=== PATIENT | female | born 1955 | race Caucasian/White ===

== ENCOUNTER → 2018-10-29 11:13 | Outpatient (CLI) | payer OTHER, MEDICAID, SELFPAY | PROVIDERS: Visit Provider Physician Assistant | DX: N89.8 Other specified noninflammatory disorders of vagina (principal) | CPT/HCPCS: 87077; 87086; 87186; 87210 ==

== ENCOUNTER → 2018-12-23 11:00 | Outpatient (CLI) | payer OTHER, MEDICAID, SELFPAY ==
--- NOTE | 2018-12-23 11:03 | DI.MG.S_ITS ---
BILATERAL DIGITAL SCREENING MAMMOGRAM 3D/2D WITH CAD: 12/23/2018 CLINICAL: Routine screening. Baseline exam. No prior exams were available for comparison. The tissue of both breasts is heterogeneously dense. This may lower the sensitivity of mammography. Current study was also evaluated with a Computer Aided Detection (CAD) system. There are mole markers on both breasts. No significant masses, calcifications, or other findings are seen in either breast. IMPRESSION: NEGATIVE There is no mammographic evidence of malignancy. A 1 year screening mammogram is recommended. This exam was interpreted at Station ID: [id number]. NOTE: For mammograms, a report in lay terms will be sent to the patient. Approximately 15% of breast malignancies will not be visualized mammographically. In the management of a palpable breast mass, a negative mammogram must not discourage biopsy of a clinically suspicious lesion. Electronically Signed By: Zia jeong/sree:12/24/2018 06:42:51 letter sent: Normal Exam ACR BI-RADS Category 1: Negative [id number]
== END ==
PROVIDERS: PCP Physician Assistant; Visit Provider Physician Assistant
DX: Z12.31 Encounter for screening mammogram for malignant neoplasm of breast (principal)
CPT/HCPCS: 77063; 77067

== ENCOUNTER 2019-03-22 13:07 | Emergency (ER) | payer OTHER, MEDICAID, SELFPAY ==
[2019-03-22 13:19] VITALS: BP 124/58; PULSE 85; RESP 18; TEMP 36.6; O2SAT 99
[2019-03-22 14:10] LABS: Add Manual Diff / Slide Review NO; Basophils Absolute Auto 100 /uL (0-100); Basophils Percent Auto 0.4 % (0-2); Eosinophils Absolute Auto 0 /uL (0-450); Eosinophils Percent Auto 0.1 % (2-4); Hematocrit 38.1 % (36-46); Hemoglobin 12.8 g/dL (12.0-16.0); Lymphocytes Absolute Auto 1000 /uL (1100-4500); Lymphocytes Percent Auto 5.3 % (25-40); Mean Corpuscular HGB Conc 33.7 % (30-36); Monocytes Absolute Auto 900 /uL (0-900); Neutrophils Absolute Auto 16400 /uL (1500-7000); Neutrophils Percent Auto 89.2 % (50-75); Platelet Count 278 X10^3/uL (150-400); Red Blood Cell Count 4.01 X10^6/uL (4.0-5.2); White Blood Cell Count 18.3 X10^3/uL (4.5-11.0)
[2019-03-22 14:15] LABS: INR 1.1 (0.9-1.3); Prothrombin Time 12.3 SECONDS (10.1-12.7)
[2019-03-22 14:18] LABS: PTT Partial Thromboplastin Tim 19 SECONDS (26.4-36.2)
[2019-03-22 14:21] LABS: Alanine Aminotransferase 37 IU/L (9-52); Albumin 4.6 g/dL (3.5-5.0); Albumin Globulin Ratio 1.6 (1.0-2.8); Alkaline Phosphatase 62 U/L (38-126); Aspartate Aminotransferase 41 IU/L (14-36); BUN Creatinine Ratio 37.5 (6-22); Bilirubin Total 1.1 mg/dL (0.2-1.3); Blood Urea Nitrogen 30 mg/dL (7-17); Calcium 9.8 mg/dL (8.4-10.2); Carbon Dioxide 24 mmol/L (22-32); Chloride 101 mmol/L (98-107); Estimated Glomerular Filt Rate > 60.0 mL/min (>60); Globulin 2.9 g/dL (1.7-4.1); Glucose 133 mg/dL (80-110); HEMOLYSIS 38 (0-50); Lipase 106 U/L (23-300); Potassium 4.1 mmol/L (3.4-5.1); Sodium 138 mmol/L (137-145); Total Protein 7.5 g/dL (6.3-8.2)
[2019-03-22 14:24] LABS: Amylase 66 U/L (30-110)
--- NOTE | 2019-03-22 14:44 | DI.CT.S_ITS ---
PROCEDURE: CT ABDOMEN PELVIS W CON INDICATIONS: lower pelvic pains TECHNIQUE: After the administration of intravenous contrast, 5 mm thick sections acquired from the diaphragm to the symphysis. 5 mm coronal and sagittal reformats were acquired. For radiation dose reduction, the following was used: automated exposure control, adjustment of mA and/or kV according to patient size. COMPARISON: None. FINDINGS: Image quality: Excellent. ABDOMEN: Lung bases: Lung bases are clear. Heart size is normal. Solid organs: Liver is normal in size and enhancement. Gallbladder appears normal. Biliary system is non dilated. Pancreas enhances normally. Spleen is normal in size and enhancement. No adrenal nodules. Kidneys demonstrate normal size and enhancement, without hydronephrosis. Peritoneum and bowel: Bowel loops demonstrate normal wall thickness and caliber. No free fluid or air. Nodes and vessels: No retroperitoneal or mesenteric adenopathy by size criteria. Aorta and inferior vena cava are normal in size. Miscellaneous: No ventral hernias. PELVIS: Genitourinary: Bladder wall thickness is normal. Miscellaneous: No inguinal hernias or adenopathy. Sigmoid diverticulosis is present, and there is what appears to be acute diverticulitis at the left lower quadrant best seen centered on series 2 image 47 without peridiverticular abscess. The bowel involves however appears to be the adjacent small bowel with several gas bubbles surrounded by mesenteric fat inflammation rather than the nearby colon. The exact anatomic detail is difficult to establish given the absence of oral contrast. Bones: No suspicious bony lesions. No vertebral body compression fractures. IMPRESSION: Sigmoid diverticulosis in several diverticula involving the descending colon are present but the small gas bubbles with adjacent inflammation at the adjacent mesenteric fat appears centered around several small bowel loops. The exact anatomy of the bowel structures is not established by this study given the absence of intravenous contrast. An abscess is not present. Small bowel diverticulitis rather than colonic diverticulitis would be suspected by the appearance noted. Throughout the peritoneal space no free air is seen, and no free fluid is found deep within the pelvis. Dictated by: Sarath Adam M.D. on 03/22/2019 at 15:02 Approved by: Sarath Adam M.D. on 03/22/2019 at 15:08
[2019-03-22] MEDS: SODIUM CHLORIDE 0.9% 1,000 ML 1000 ML IV (15:15)
[2019-03-22] MEDS: metroNIDAZOLE 250 MG TABLET 500 MG PO (16:22)
[2019-03-22] MEDS: CIPROFLOXACIN 500 MG TABLET PO (16:22)
[2019-03-22] MEDS: ONDANSETRON 4 MG/2 ML INJ IV (16:22)
--- NOTE | 2019-03-22 16:47 | ED_ITS ---
HPI - Abdominal Pain <JONATHAN LopezBC - Last Filed: 03/22/19 18:16> General Chief Complaint: Abdominal Pain Stated Complaint: abd pain started at 1:30am Time Seen by Provider: 03/22/19 13:30 Source: patient Mode of arrival: Ambulatory Limitations: no limitations History of Present Illness HPI narrative: The patient is a 64-year-old female nonsmoker presents with a chief complaint of left lower quadrant pain that started at 1:30 a.m. this morning. She states that the pain radiates across to her right lower abdomen. She denies any fevers nausea vomiting or diarrhea. Last bowel movement this morning at 10:00 a.m.. She denies any dysuria urgency or frequency. She to size the pain is aching. Worse with pressure. Worse with movement. She denies any previous abdominal surgeries or abdominal history. She states she does have a history of hypertension. Related Data Home Medications Medication Instructions Recorded Confirmed chlorthalidone 12.5 mg PO DAILY 03/22/19 03/22/19 lisinopril 40 mg PO DAILY 03/22/19 03/22/19 sertraline 50 mg PO DAILY 03/22/19 03/22/19 Previous Rx's Medication Instructions Recorded hydrocortisone 1 % topical cream 1 applictn TOP BID PRN #30 gram 11/01/18 ciprofloxacin HCl [Cipro] 500 mg PO BID #20 tab 03/22/19 hydrocodone-acetaminophen [Silverpeak] 1 tab PO Q4-6H PRN #10 tab 03/22/19 metronidazole 500 mg PO Q8H 10 Days #30 tab 03/22/19 ondansetron 4 mg PO Q6H PRN #20 tab 03/22/19 Allergies Allergy/AdvReac Type Severity Reaction Status Date / Time No Known Drug Allergies Allergy Verified 03/22/19 13:23 Review of Systems <JIGAR Lopez - Last Filed: 03/22/19 18:16> Review of Systems Narrative: GENERAL: Denies chills, fatigue, malaise, fever, sweats. HEENT: Denies sinus pain, ear pain, sore throat, difficulty swallowing, dizziness. RESPIRATORY: Denies dyspnea, cough, wheezing, hemoptysis, sputum. CARDIOVASCULAR: Denies chest pain, palpitations, orthopnea, edema, GASTROINTESTINAL: See HPI : Denies dysuria, frequency, incontinence, hematuria, urinary retention. MUSCULOSKELETAL: denies weakness, joint pain, or bony pain SKIN: Denies rash, skin lesions, or other NEUROLOGIC: Denies weakness, headache, numbness, change in speech, confusion, seizures, incoordination. PSYCHIATRIC: No concerning psychosocial issues. 12 point review of systems is negative except for those stated above Patient History <JIGAR Lopez - Last Filed: 03/22/19 18:16> Social History Smoking Status: Never smoker Social History Smoking Status: Never smoker alcohol intake frequency: 0-2 drinks per day Substance Use Type: does not use Exam <JONATHAN Lopez - Last Filed: 03/22/19 18:16> Narrative Exam Narrative: GENERAL: This is a well-nourished, well-developed patient, appears slightly uncomfortable HEAD: Atraumatic. Normocephalic. No temporal or scalp tenderness. EYES: Pupils equal round and reactive. Extraocular motions intact. No scleral icterus. No injection or drainage. ENT: Nose without bleeding, purulent drainage or septal hematoma. Throat without erythema, tonsillar hypertrophy or exudate. Uvula midline. Airway patent. NECK: Trachea midline. No JVD or lymphadenopathy. Supple, nontender, no men ingeal signs. CARDIOVASCULAR: Regular rate and rhythm without murmurs, gallops, or rubs. RESPIRATORY: Clear to auscultation. Breath sounds equal bilaterally. No wheezes, rales, or rhonchi. No cough. No increased respiratory effort. No accessory muscle use. GASTROINTESTINAL: Abdomen soft, nondistended. No hepato-splenomegaly, or palpable masses. Pain to palpation right lower quadrant, pain to palpation left lower quadrant with some guarding. EXTREMITIES: No clubbing, cyanosis, or edema. No joint tenderness, effusion, or edema noted. BACK: Nontender without deformity or crepitance. No flank tenderness. NEURO: AOx3. SKIN: No rash or erythema. Initial Vital Signs Initial Vital Signs: Vital Signs Temperature 97.8 F 03/22/19 13:19 Pulse Rate 85 03/22/19 13:19 Respiratory Rate 18 03/22/19 13:19 Blood Pressure 124/58 L 03/22/19 13:19 Pulse Oximetry 99 03/22/19 13:19 <Mello Jovel DO - Last Filed: 03/22/19 18:19> Initial Vital Signs Initial Vital Signs: Vital Signs Temperature 97.8 F 03/22/19 13:19 Pulse Rate 85 03/22/19 13:19 Respiratory Rate 18 03/22/19 13:19 Blood Pressure 124/58 L 03/22/19 13:19 Pulse Oximetry 99 03/22/19 13:19 Course <ZULMA Lopez-BC - Last Filed: 03/22/19 18:16> Orders Ordered: ED Orders 03/22/19 13:54 Amylase Stat Complete Blood Count AUTO DIFF Stat Comprehensive Metabolic Panel Stat Lipase Stat Partial Thromboplastin Time Stat Prothrombin Time INR Stat 03/22/19 14:44 CT abdomen pelvis w con Stat Discontinued Medications Ciprofloxacin (Cipro) 500 mg PO NOW ONE Stop: 03/22/19 15:45 Last Admin: 03/22/19 16:22 Dose: 500 mg Documented by: GAGE Sodium Chloride (Normal Saline 0.9%) 1,000 mls @ 1,000 mls/hr IV BOLUS ONE Stop: 03/22/19 15:26 Last Infusion: 03/22/19 16:31 Dose: 0 mls/hr Documented by: Admin: 03/22/19 15:15 Dose: 1,000 mls/hr Documented by: GAGE Metronidazole (Metronidazole) 500 mg PO NOW ONE Stop: 03/22/19 15:45 Last Admin: 03/22/19 16:22 Dose: 500 mg Documented by: GAGE Ondansetron HCl (Zofran) 4 mg IV NOW ONE Stop: 03/22/19 15:45 Last Admin: 03/22/19 16:22 Dose: 4 mg Documented by: GAGE Vital Signs Vital signs: Vital Signs - 8 hr 03/22/19 13:19 Temperature 97.8 F Pulse Rate 85 Respiratory Rate 18 Blood Pressure 124/58 L Pulse Oximetry 99 <DO Magalis Lew Last Filed: 03/22/19 18:19> Orders Ordered: ED Orders 03/22/19 13:54 Amylase Stat Complete Blood Count AUTO DIFF Stat Comprehensive Metabolic Panel Stat Lipase Stat Partial Thromboplastin Time Stat Prothrombin Time INR Stat 03/22/19 14:44 CT abdomen pelvis w con Stat Discontinued Medications Ciprofloxacin (Cipro) 500 mg PO NOW ONE Stop: 03/22/19 15:45 Last Admin: 03/22/19 16:22 Dose: 500 mg Documented by: GAGE Sodium Chloride (Normal Saline 0.9%) 1,000 mls @ 1,000 mls/hr IV BOLUS ONE Stop: 03/22/19 15:26 Last Infusion: 03/22/19 16:31 Dose: 0 mls/hr Documented by: Admin: 03/22/19 15:15 Dose: 1,000 mls/hr Documented by: GAGE Metronidazole (Metronidazole) 500 mg PO NOW ONE Stop: 03/22/19 15:45 Last Admin: 03/22/19 16:22 Dose: 500 mg Documented by: GAGE Ondansetron HCl (Zofran) 4 mg IV NOW ONE Stop: 03/22/19 15:45 Last Admin: 03/22/19 16:22 Dose: 4 mg Documented by: GAGE Vital Signs Vital signs: Vital Signs - 8 hr 03/22/19 13:19 Temperature 97.8 F Pulse Rate 85 Respiratory Rate 18 Blood Pressure 124/58 L Pulse Oximetry 99 MDM - Abdominal Pain <JONATHAN Lopez - Last Filed: 03/22/19 18:16> Lab Data Result diagrams: 03/22/19 13:54 03/22/19 13:54 Labs: Lab Results 03/22/19 03/22/19 03/22/19 Range/Units 13:54 13:54 13:54 WBC 18.3 H (4.5-11.0) X10^3/uL RBC 4.01 (4.0-5.2) X10^6/uL Hgb 12.8 (12.0-16.0) g/dL Hct 38.1 (36-46) % MCV 95.0 (80-100) fL MCH 32.0 (26-34) PG MCHC 33.7 (30-36) % RDW 13.0 (11.6-14.8) % Plt Count 278 (150-400) X10^3/uL Neut % (Auto) 89.2 H (50-75) % Lymph % (Auto) 5.3 L (25-40) % [place] % (Auto) 5.0 (3-14) % Eos % (Auto) 0.1 L (2-4) % Baso % (Auto) 0.4 (0-2) % Neut # (Auto) 62780 H (3435-2114) /uL Lymph # (Auto) 1000 L (6986-0018) /uL [place] # (Auto) 900 (0-900) /uL Eos # (Auto) 0 (0-450) /uL Baso # (Auto) 100 (0-100) /uL PT 12.3 (10.1-12.7) SECONDS INR 1.1 (0.9-1.3) APTT 19 L (26.4-36.2) SECONDS Sodium 138 (137-145) mmol/L Potassium 4.1 (3.4-5.1) mmol/L Chloride 101 (98-107) mmol/L Carbon Dioxide 24 (22-32) mmol/L BUN 30 H (7-17) mg/dL Creatinine 0.80 (0.52-1.04) mg/dL Estimated GFR > 60.0 (>60) mL/min BUN/Creatinine Ratio 37.5 H (6-22) Glucose 133 H (80-110) mg/dL Calcium 9.8 (8.4-10.2) mg/dL Total Bilirubin 1.1 (0.2-1.3) mg/dL AST 41 H (14-36) IU/L ALT 37 (9-52) IU/L Alkaline Phosphatase 62 (38-126) U/L Total Protein 7.5 (6.3-8.2) g/dL Albumin 4.6 (3.5-5.0) g/dL Globulin 2.9 (1.7-4.1) g/dL Albumin/Globulin Ratio 1.6 (1.0-2.8) Amylase (30-110) U/L Lipase 106 (23-300) U/L 03/22/ Range/Units 13:54 WBC (4.5-11.0) X10^3/uL RBC (4.0-5.2) X10^6/uL Hgb (12.0-16.0) g/dL Hct (36-46) % MCV (80-100) fL MCH (26-34) PG MCHC (30-36) % RDW (11.6-14.8) % Plt Count (150-400) X10^3/uL Neut % (Auto) (50-75) % Lymph % (Auto) (25-40) % [place] % (Auto) (3-14) % Eos % (Auto) (2-4) % Baso % (Auto) (0-2) % Neut # (Auto) (7680-6755) /uL Lymph # (Auto) (8648-2568) /uL [place] # (Auto) (0-900) /uL Eos # (Auto) (0-450) /uL Baso # (Auto) (0-100) /uL PT (10.1-12.7) SECONDS INR (0.9-1.3) APTT (26.4-36.2) SECONDS Sodium (137-145) mmol/L Potassium (3.4-5.1) mmol/L Chloride (98-107) mmol/L Carbon Dioxide (22-32) mmol/L BUN (7-17) mg/dL Creatinine (0.52-1.04) mg/dL Estimated GFR (>60) mL/min BUN/Creatinine Ratio (6-22) Glucose (80-110) mg/dL Calcium (8.4-10.2) mg/dL Total Bilirubin (0.2-1.3) mg/dL AST (14-36) IU/L ALT (9-52) IU/L Alkaline Phosphatase (38-126) U/L Total Protein (6.3-8.2) g/dL Albumin (3.5-5.0) g/dL Globulin (1.7-4.1) g/dL Albumin/Globulin Ratio (1.0-2.8) Amylase 66 (30-110) U/L Lipase (23-300) U/L Imaging Data CT scan - abdomen: Radiologist's impression: [address] [address] [address] Scan Report Signed Patient: Marya King [facility]#: [id number] : 5Acct:[id number] Age/Sex: 64 / FDate of Service: 03/22/19 Loc: ED Accession Number: [id number] Procedure: CT abdomen pelvis w con Ordering Provider: Gila Hodges MATERIAL EXPEDITER- PROCEDURE: CT ABDOMEN PELVIS W CON INDICATIONS: lower pelvic pains TECHNIQUE: After the administration of intravenous contrast, 5 mm thick sections acquired from the diaphragm to the symphysis. 5 mm coronal and sagittal reformats were acquired. For radiation dose reduction, the following was used: automated exposure control, adjustment of mA and/or kV according to patient size. COMPARISON: None. FINDINGS: Image quality: Excellent. ABDOMEN: Lung bases: Lung bases are clear. Heart size is normal. Solid organs: Liver is normal in size and enhancement. Gallbladder appears normal. Biliary system is non dilated. Pancreas enhances normally. Spleen is normal in size and enhancement. No adrenal nodules. Kidneys demonstrate normal size and enhancement, without hydronephrosis. Peritoneum and bowel: Bowel loops demonstrate normal wall thickness and calib er. No free fluid or air. Nodes and vessels: No retroperitoneal or mesenteric adenopathy by size criteria. Aorta and inferior vena cava are normal in size. Miscellaneous: No ventral hernias. PELVIS: Genitourinary: Bladder wall thickness is normal. Miscellaneous: No inguinal hernias or adenopathy. Sigmoid diverticulosis is present, and there is what appears to be acute diverticulitis at the left lower quadrant best seen centered on series 2 image 47 without peridiverticular abscess. The bowel involves however appears to be the adjacent small bowel with several gas bubbles surrounded by mesenteric fat inflammation rather than the nearby colon. The exact anatomic detail is difficult to establish given the absence of oral contrast. Bones: No suspicious bony lesions. No vertebral body compression fractures. IMPRESSION: Sigmoid diverticulosis in several diverticula involving the descending colon are present but the small gas bubbles with adjacent inflammation at the adjacent mesenteric fat appears centered around several small bowel loops. The exact anatomy of the bowel structures is not established by this study given the absence of intravenous contrast. An abscess is not present. Small bowel diverticulitis rather than colonic diverticulitis would be suspected by the appearance noted. Throughout the peritoneal space no free air is seen, and no free fluid is found deep within the pelvis. Dictated by: Sarath Adam M.D. on 03/22/2019 at 15:02 Approved by: Sarath Adam M.D. on 03/22/2019 at 15:08 [facility] Narrative Medical decision making narrative: The patient is a 64-year-old female who presents with a chief complaint of left lower quadrant pain. She had leukocytosis noted on her lab work, it was very tender to exam, so I did obtain a CT abdomen pelvis with IV contrast. This identified diverticulitis with no evidence of abscess. The patient is normotensive, afebrile etc. She is able to tolerate oral antibiotics in the emergency department. I discussed at length coming back to the emergency department for any acute concerns such as inability keep down fluids. I discussed the importance of follow-up with primary care provider as well as dietary changes for diverticulitis. Patient has no questions or concerns upon discharge and states understanding of return precautions as well as follow-up care. I did give her prescriptions of Zofran as well as Silverpeak. <Mello Jovel, DO - Last Filed: 03/22/19 18:19> Lab Data Labs: Lab Results 03/22/19 03/22/19 03/22/19 Range/Units 13:54 13:54 13:54 WBC 18.3 H (4.5-11.0) X10^3/uL RBC 4.01 (4.0-5.2) X10^6/uL Hgb 12.8 (12.0-16.0) g/dL Hct 38.1 (36-46) % MCV 95.0 (80-100) fL MCH 32.0 (26-34) PG MCHC 33.7 (30-36) % RDW 13.0 (11.6-14.8) % Plt Count 278 (150-400) X10^3/uL Neut % (Auto) 89.2 H (50-75) % Lymph % (Auto) 5.3 L (25-40) % [place] % (Auto) 5.0 (3-14) % Eos % (Auto) 0.1 L (2-4) % Baso % (Auto) 0.4 (0-2) % Neut # (Auto) 84219 H (9861-4539) /uL Lymph # (Auto) 1000 L (3368-3884) /uL [place] # (Auto) 900 (0-900) /uL Eos # (Auto) 0 (0-450) /uL Baso # (Auto) 100 (0-100) /uL PT 12.3 (10.1-12.7) SECONDS INR 1.1 (0.9-1.3) APTT 19 L (26.4-36.2) SECONDS Sodium 138 (137-145) mmol/L Potassium 4.1 (3.4-5.1) mmol/L Chloride 101 (98-107) mmol/L Carbon Dioxide 24 (22-32) mmol/L BUN 30 H (7-17) mg/dL Creatinine 0.80 (0.52-1.04) mg/dL Estimated GFR > 60.0 (>60) mL/min BUN/Creatinine Ratio 37.5 H (6-22) Glucose 133 H (80-110) mg/dL Calcium 9.8 (8.4-10.2) mg/dL Total Bilirubin 1.1 (0.2-1.3) mg/dL AST 41 H (14-36) IU/L ALT 37 (9-52) IU/L Alkaline Phosphatase 62 (38-126) U/L Total Protein 7.5 (6.3-8.2) g/dL Albumin 4.6 (3.5-5.0) g/dL Globulin 2.9 (1.7-4.1) g/dL Albumin/Globulin Ratio 1.6 (1.0-2.8) Amylase (30-110) U/L Lipase 106 (23-300) U/L 03/22/ Range/Units 13:54 WBC (4.5-11.0) X10^3/uL RBC (4.0-5.2) X10^6/uL Hgb (12.0-16.0) g/dL Hct (36-46) % MCV (80-100) fL MCH (26-34) PG MCHC (30-36) % RDW (11.6-14.8) % Plt Count (150-400) X10^3/uL Neut % (Auto) (50-75) % Lymph % (Auto) (25-40) % [place] % (Auto) (3-14) % Eos % (Auto) (2-4) % Baso % (Auto) (0-2) % Neut # (Auto) (1677-1758) /uL Lymph # (Auto) (5508-3260) /uL [place] # (Auto) (0-900) /uL Eos # (Auto) (0-450) /uL Baso # (Auto) (0-100) /uL PT (10.1-12.7) SECONDS INR (0.9-1.3) APTT (26.4-36.2) SECONDS Sodium (137-145) mmol/L Potassium (3.4-5.1) mmol/L Chloride (98-107) mmol/L Carbon Dioxide (22-32) mmol/L BUN (7-17) mg/dL Creatinine (0.52-1.04) mg/dL Estimated GFR (>60) mL/min BUN/Creatinine Ratio (6-22) Glucose (80-110) mg/dL Calcium (8.4-10.2) mg/dL Total Bilirubin (0.2-1.3) mg/dL AST (14-36) IU/L ALT (9-52) IU/L Alkaline Phosphatase (38-126) U/L Total Protein (6.3-8.2) g/dL Albumin (3.5-5.0) g/dL Globulin (1.7-4.1) g/dL Albumin/Globulin Ratio (1.0-2.8) Amylase 66 (30-110) U/L Lipase (23-300) U/L Discharge Plan Departure Patient Disposition: Home Clinical Impression: Diverticulitis Discharge Date/Time: 03/22/19 17:07 Instructions: Diverticulitis, DI for Diverticulitis Activity Restrictions/Additional Instructions: Today be found evidence of diverticulitis on her CT scan. I believe this is causing your pain. We have started you on antibiotics. I have also given you a prescription for pain and nausea medications. Please follow up with primary care provider in the next day or 2 for re- evaluation. Please come back to the emergency department for any acute concerns such as inability keep down fluids, high fevers, or any acute concerns. Please remember the dietary modifications that are included in the discharge instructions Prescriptions: New hydrocodone-acetaminophen [Silverpeak] 5-325 mg tablet 1 tab PO Q4-6H PRN (Reason: pain) Qty: 10 RF: 0 ondansetron 4 mg tablet,disintegrating 4 mg PO Q6H PRN (Reason: nausea and vomiting) Qty: 20 RF: 0 metronidazole 500 mg tablet 500 mg PO Q8H 10 Days Qty: 30 RF: 0 ciprofloxacin HCl [Cipro] 500 mg tablet 500 mg PO BID Qty: 20 RF: 0 No Action hydrocortisone 1 % cream 1 applictn TOP BID PRN (Reason: skin irritation) Qty: 30 RF: 0 chlorthalidone 25 mg Tablet 12.5 mg PO DAILY RF: 0 lisinopril 40 mg Tablet 40 mg PO DAILY RF: 0 sertraline 50 mg Tablet 50 mg PO DAILY RF: 0 Referrals: Janet Manzo PA-C [Primary Care Provider] - <Mello Jovel DO - Last Filed: 03/22/19 18:19> Sign Out Provider Sign Out Attestation: I was available for consultation during this patient's emergency department visit. This chart is signed by myself for administrative purposes only. I did not have direct contact with this patient during this visit. They were seen independently by the APC.
== END 2019-03-22 17:07 | disposition home or self-care (01) ==
PROVIDERS: Emergency Provider Nurse Practitioner Family; PCP Physician Assistant
DX: K57.92 Diverticulitis of intestine, part unspecified, without perforation or abscess without bleeding (principal)
CPT/HCPCS: 36415; 74177; 80053; 82150; 83690; 85025; 85610; 85730; 96361; 96374; 99283; 99285; J2405; Q9967